=== PATIENT | female | born 1995 | race Hispanic/Latino ===

== ENCOUNTER 2020-03-01 12:28 | Emergency (ER) | payer BC ==
[2020-03-01 13:59] VITALS: BP 125/80
--- NOTE | 2020-03-01 15:53 | Event Note ---
ED Screening Note Date of service: 03/01/20 Time: 15:51 ED Screening Note: -year-old female presents with left-sided back/flank pain worsening x3 days. Patient also states she is noting some numbness to her buttocks region for the past month that is worsening and causing numbness to the left leg This initial assessment/diagnostic orders/clinical plan/treatment(s) is/are subject to change based on patients health status, clinical progression and re- assessment by fellow clinical providers in the ED. Further treatment and workup at subsequent clinical providers discretion. Patient/guardian urged not to elope from the ED as their condition may be serious if not clinically assessed and managed. Initial orders include: ua,upt decadron? Pain control neuro?
[2020-03-01] MEDS ORDERED: KETOROLAC 30 MG/1 ML INJ IM ONE (17:52)
--- NOTE | 2020-03-01 17:58 | Emergency Department Report ---
ED Back Pain/Injury HPI - General Chief Complaint: Back Pain/Injury Stated Complaint: BACK AND LEG PAIN Time Seen by Provider: 03/01/20 17:36 Source: patient Limitations: No Limitations - History of Present Illness Initial Comments: This is a healthy 24-year-old female with a history of depression who presents with buttock numbness lower back pain. The numbness began several months ago. Numbness is located in both buttocks. She has lower back pain bilateral. She started a new job 4 months ago working in [employer]. No trauma. No car accidents. No falls. She does perform lifting bending with her new job. She denies leg weakness. She denies bowel or bladder incontinence. She denies fever. She took Tylenol with minimal relief. MD Complaint: back pain -: Gradual, month(s) (1 month of pain, several months of buttock numbness) Place: home, work Severity: moderate Severity scale (0 -10): 7 Quality: dull Consistency: constant Improves With: movement Worsens With: none Context: other (new job ) - Related Data Previous Rx's Medication Instructions Recorded Last Taken Type Cyclobenzaprine [Flexeril] 10 mg PO TID PRN #20 tablet 03/01/20 Unknown Rx Ibuprofen [Motrin 400 MG tab] 400 mg PO QID 5 Days #20 tablet 03/01/20 Unknown Rx Allergies Allergy/AdvReac Type Severity Reaction Status Date / Time amoxicillin Allergy Unknown Verified 03/01/20 13:56 ED Review of Systems ROS: Stated complaint: BACK AND LEG PAIN Other details as noted in HPI Constitutional: denies: fever, malaise Gastrointestinal: denies: abdominal pain, nausea, vomiting Neurological: numbness, paresthesias. denies: headache, weakness ED Past Medical Hx - Past Medical History Previous Medical History?: Yes Hx Asthma: Yes Additional medical history: Depression - Surgical History Past Surgical History?: No - Social History Smoking Status: Never Smoker Substance Use Type: None - Medications Home Medications: Home Medications Medication Instructions Recorded Confirmed Last Taken Type Cyclobenzaprine [Flexeril] 10 mg PO TID PRN #20 tablet 03/01/20 Unknown Rx Ibuprofen [Motrin 400 MG tab] 400 mg PO QID 5 Days #20 tablet 03/01/20 Unknown Rx ED Physical Exam - General Limitations: No Limitations General appearance: alert, in no apparent distress - Head Head exam: Present: atraumatic, normocephalic - Eye Eye exam: Present: normal appearance - ENT ENT exam: Present: mucous membranes moist - Neck Neck exam: Present: normal inspection - Respiratory Respiratory exam: Absent: respiratory distress - Extremities Exam Extremities exam: Present: normal inspection - Back Exam Back exam: Present: normal inspection, full ROM, muscle spasm. Absent: tenderness, CVA tenderness (R), CVA tenderness (L), paraspinal tenderness, vertebral tenderness - Neurological Exam Neurological exam: Present: alert, oriented X3 - Psychiatric Psychiatric exam: Present: normal affect, normal mood - Skin Skin exam: Present: warm, dry, intact, normal color. Absent: rash ED Course Vital Signs 03/01/20 03/01/20 13:57 15:56 Temperature 98.0 F 98 F Pulse Rate 80 77 Respiratory 16 18 Rate Blood Pressure 125/80 125/80 O2 Sat by Pulse 99 100 Oximetry ED Medical Decision Making - Medical Decision Making Back strain lower back strain due to new job. No evidence of cauda equina or cord compression. No red flags such as trauma, bowel bladder incontinence, neurological findings, weight loss, drug use. Prescribed ibuprofen and Flexeril. Recommended physical therapy. Recommended evaluation and treatment by chiropractor. Also given referral to outpatient medicine physician. Critical care attestation.: If time is entered above; I have spent that time in minutes in the direct care of this critically ill patient, excluding procedure time. ED Disposition Clinical Impression: Low back strain, Repetitive strain injury of lower back Disposition: DC-01 TO HOME OR SELFCARE Is pt being admited?: No Does the pt Need Aspirin: No Condition: Stable Instructions: Low Back Strain (ED), Core Strengthening Exercises (GEN) Prescriptions: Cyclobenzaprine [Flexeril] 10 mg PO TID PRN #20 tablet PRN Reason: Muscle Spasm Ibuprofen [Motrin 400 MG tab] 400 mg PO QID 5 Days #20 tablet Referrals: ISRAEL PEREZ MD [Staff Physician] - 3-5 Days Forms: Work/School Release Form(ED)
== END 2020-03-01 18:11 | disposition home or self-care (01) ==
LOC: ED 12:28
DX: S39.012A Strain of muscle, fascia and tendon of lower back, initial encounter (principal); J45.909 Unspecified asthma, uncomplicated; F32.9 Major depressive disorder, single episode, unspecified; Z79.1 Long term (current) use of non-steroidal anti-inflammatories (NSAID); Z79.899 Other long term (current) drug therapy; Z88.1 Allergy status to other antibiotic agents; X58.XXXA Exposure to other specified factors, initial encounter; Y93.89 Activity, other specified; Y92.89 Other specified places as the place of occurrence of the external cause; Y99.8 Other external cause status
CPT/HCPCS: 96372; 99282; J1885

== ENCOUNTER 2021-05-21 05:49 | Emergency (ER) | payer SELFPAY ==
[2021-05-21 06:05] VITALS: BP 108/69
--- NOTE | 2021-05-21 06:30 | Emergency Department Report ---
ED General Adult HPI - General Chief complaint: Vaginal Bleeding Stated complaint: BLEEDING/5 WKS Time Seen by Provider: 05/21/21 06:27 Source: patient Mode of arrival: Ambulatory Limitations: No Limitations - History of Present Illness Initial comments: Patient is 25 years old female 2, 1 ectopic . Patient stated that she is 5 weeks . Patient presented to the ER complaining of vaginal bleeding for 2 days. Patient is also complaining of lower abdominal cramping mainly suprapubic area. Patient denied any vaginal discharge. No fever or chills. No recent injury. - Related Data Previous Rx's Medication Instructions Recorded Last Taken Type Cyclobenzaprine [Flexeril] 10 mg PO TID PRN #20 tablet 03/01/20 Unknown Rx Ibuprofen [Motrin 400 MG tab] 400 mg PO QID 5 Days #20 tablet 03/01/20 Unknown Rx Allergies Allergy/AdvReac Type Severity Reaction Status Date / Time amoxicillin Allergy Unknown Verified 03/01/20 13:56 ED Review of Systems ROS: Stated complaint: BLEEDING/5 WKS Other details as noted in HPI Comment: All other systems reviewed and negative Constitutional: denies: chills, fever Respiratory: denies: cough, shortness of breath, SOB with exertion Cardiovascular: denies: chest pain Gastrointestinal: abdominal pain. denies: nausea, vomiting, diarrhea, constipation, hematemesis, melena, hematochezia Genitourinary: abnormal menses. denies: urgency Musculoskeletal: denies: back pain Neurological: denies: headache, weakness, numbness, paresthesias, confusion ED Past Medical Hx - Past Medical History Previous Medical History?: Yes Hx Asthma: Yes Additional medical history: Depression. Ectopic - Surgical History Past Surgical History?: No - Social History Smoking Status: Former Smoker - Medications Home Medications: Home Medications Medication Instructions Recorded Confirmed Last Taken Type Cyclobenzaprine [Flexeril] 10 mg PO TID PRN #20 tablet 03/01/20 Unknown Rx Ibuprofen [Motrin 400 MG tab] 400 mg PO QID 5 Days #20 tablet 03/01/20 Unknown Rx ED Physical Exam - General Limitations: No Limitations General appearance: alert, in no apparent distress - Head Head exam: Present: atraumatic, normocephalic, normal inspection - Eye Eye exam: Present: normal appearance, PERRL - ENT ENT exam: Present: normal exam, normal orophraynx, mucous membranes moist - Neck Neck exam: Present: normal inspection, full ROM. Absent: tenderness, meningismus - Respiratory Respiratory exam: Present: normal lung sounds bilaterally - Cardiovascular Cardiovascular Exam: Present: regular rate, normal rhythm, normal heart sounds - GI/Abdominal GI/Abdominal exam: Present: soft, normal bowel sounds. Absent: distended, tenderness, guarding, rebound, rigid, organomegaly, mass, bruit, pulsatile mass, hernia - Extremities Exam Extremities exam: Present: normal inspection, full ROM, normal capillary refill. Absent: tenderness - Back Exam Back exam: Present: normal inspection, full ROM. Absent: CVA tenderness (R), CVA tenderness (L) - Neurological Exam Neurological exam: Present: alert, oriented X3, CN II-XII intact, normal gait, reflexes normal - Psychiatric Psychiatric exam: Present: normal mood - Skin Skin exam: Present: warm, intact, normal color ED Course Vital Signs 05/21/21 06:02 Temperature 97.6 F Pulse Rate 77 Respiratory 16 Rate Blood Pressure 108/69 [Right] O2 Sat by Pulse 99 Oximetry ED Medical Decision Making - Lab Data Result diagrams: 05/21/21 06:44 05/21/21 06:44 - Radiology Data Radiology results: report reviewed - Medical Decision Making Patient is 25 years old female 2, 1 ectopic . Patient stated that she is 5 weeks . Patient presented to the ER complaining of vaginal bleeding for 2 days. Patient is also complaining of lower abdominal cramping mainly suprapubic area. Patient denied any vaginal discharge. No fever or chills. No recent injury. Patient remained stable in the ER with stable vital sign. Labs showed a beta- hCG quant of more than 5000 however there is no intrauterine . There is a left ovarian complex cyst according to the report. There is a possibility of ectopic . Try to call Dr. Calderon patient OB doctor several times but there is no answer. Patient became upset and she wanted to leave the ER. I told her the risk of leaving with a ectopic without treatment. She stated that she will still want to leave. Patient is alert, oriented x3 no acute distress. Patient advised to return to the emergency room if she started to have any abdominal pain or bleeding. Critical care attestation.: If time is entered above; I have spent that time in minutes in the direct care of this critically ill patient, excluding procedure time. ED Disposition Clinical Impression: Ectopic Disposition: 01 HOME / SELF CARE / HOMELESS Is pt being admited?: No Condition: Stable Instructions: Ectopic Additional Instructions: Your ultrasound showed possible empty uterus with left ovarian cyst and elevated beta hCG this is may indicate that you have ectopic . Please return to the ER immediately if you start having any abdominal pain or vaginal bleeding. Please follow-up with your primary doctor as soon as possible. Referrals: PRIMARY MD JOYCE [Primary Care Provider] - 3-5 Days SHIRLEY CALDERON MD [Staff Physician] - 3-5 Days
[2021-05-21 06:49] LABS: WBC,Urine < 1.0 /HPF (0.0-6.0)
[2021-05-21 07:05] LABS: Basophils % (Auto) 0.6 % (0.0-1.8); Eosinophils # (Auto) 0.1 K/mm3 (0.0-0.4); Eosinophils % (Auto) 0.7 % (0.0-4.3); Hemoglobin 15.1 gm/dl (10.1-14.3); Lymphocytes # (Auto) 2.3 K/mm3 (1.2-5.4); Lymphocytes % (Auto) 32.1 % (13.4-35.0); Mean Corpuscular HGB Conc 35 % (30-34); Mean Corpuscular Volume 95 fl (79-97); Monocytes # (Auto) 0.4 K/mm3 (0.0-0.8); Monocytes % (Auto) 6.2 % (0.0-7.3); Platelet Count 264 K/mm3 (140-440); Red Blood Count 4.55 M/mm3 (3.65-5.03); Red Cell Distribution Width 12.4 % (13.2-15.2)
[2021-05-21 07:07] LABS: Bilirubin,Urine Negative (Negative); Blood,Urine 2+ (Negative); Color,Urine Straw (Yellow)
[2021-05-21 07:08] LABS: Protein,Urine <15 mg/dL mg/dL (Negative); Urobilinogen,Urine < 2.0 mg/dL (<2.0)
[2021-05-21 07:24] LABS: Blood Urea Nitrogen 9 mg/dL (7-17); Calcium 9.2 mg/dL (8.4-10.2); Hemolysis Index 4
[2021-05-21 07:25] LABS: BUN/Creatinine Ratio 23
--- NOTE | 2021-05-21 09:57 | Ultrasound Report ---
US OB <= 14 weeks fetus INDICATION / CLINICAL INFORMATION: Abdominal pain . COMPARISON: None available. FINDINGS: There is no sonographic evidence of intrauterine . No endometrial fluid collections are seen . Endometrial thickness is 9 mm. Right ovary is unremarkable. The left ovary contains a 2.3 cm complex cyst. No free fluid is seen. IMPRESSION: 1. No sonographic evidence of intrauterine . 2. 2.3 cm complex left ovarian cyst. Correlation with serial beta hCG levels and short-term sonograph ic follow-up is recommended. Signer Name: Steven Saxena MD Signed: 05/21/2021 9:53 AM Workstation Name: [id number]
--- NOTE | 2021-05-28 07:50 | Ultrasound Report ---
ULTRASOUND PELVIS INDICATION: ABDOMINAL PAIN. TECHNIQUE: Transvaginal. Duplex Color Doppler used: Yes. COMPARISON: None available FINDINGS: Uterus: Present. Size: 8.6 x 4 x 4.4 cm. Endometrial complex: Prominent measuring 0.9 cm. Mass lesions: None. Additional findings: None. Right Ovary -- 2.3 x 1.4 x 1.8 Blood flow: Normal. Cyst or mass: None. Left Ovary-- 4.7 x 2.4 x 2 Blood flow: Normal. Cyst or mass: 2.3 cm complex cyst. Urinary Bladder: Normal. Free Fluid: None. Additional Findings: None. IMPRESSION: 1. Prominent endometrial stripe. No intrauterine . 2. Mildly complex cyst left ovary. Recommend correlation with hCG levels. 3. No adnexal lesion. Signer Name: Jaspal Nolan MD Signed: 05/28/2021 7:45 AM Workstation Name: [id number]
== END 2021-05-21 13:07 | disposition home or self-care (01) ==
LOC: ED 05:49
DX: O00.90 Unspecified ectopic pregnancy without intrauterine pregnancy (principal); J45.909 Unspecified asthma, uncomplicated; Z88.1 Allergy status to other antibiotic agents; Z3A.01 Less than 8 weeks gestation of pregnancy
CPT/HCPCS: 36415; 76801; 76817; 80048; 81001; 84702; 85025; 86900; 86901; 99284

== ENCOUNTER 2022-04-05 20:36 | Outpatient (CLI) | payer OTHER ==
[2022-04-05] MEDS ORDERED: LACTATED RINGERS 1,000 ML IV ONE (22:01)
[2022-04-05 22:22] LABS: Bilirubin,Urine NEG (Negative); Blood,Urine NEG (Negative); Color,Urine Yellow (Yellow); Protein,Urine <15 mg/dL mg/dL (Negative); Urobilinogen,Urine < 2 mg/dL (<2.0)
[2022-04-05 22:23] LABS: Bacteria,Urine 1+ /HPF (Negative); Mucus,Urine FEW /HPF
[2022-04-05 22:24] LABS: Hematocrit 34.8 % (30.3-42.9); Hemoglobin 11.6 gm/dl (10.1-14.3); Mean Corpuscular HGB Conc 33 % (30-34); Mean Corpuscular Volume 84 fl (79-97); Platelet Count 302 K/mm3 (140-440); Red Blood Count 4.16 M/mm3 (3.65-5.03); Red Cell Distribution Width 14.2 % (13.2-15.2)
[2022-04-05 22:44] LABS: Alanine Aminotransferase 17 units/L (7-56)
[2022-04-05 23:27] VITALS: BP 136/83
[2022-04-06 01:29] LABS: Uric Acid 5.8 mg/dL (3.5-7.6)
== END 2022-04-05 23:30 | disposition home or self-care (01) ==
LOC: TRG 20:36 → APU 20:43 → TRG 23:30
PROVIDERS: ATTEND Obstetrics & Gynecology Gynecology
DX: O13.3 Gestational [pregnancy-induced] hypertension without significant proteinuria, third trimester (principal); Z3A.36 36 weeks gestation of pregnancy
CPT/HCPCS: 36415; 81001; 82565; 83615; 84450; 84460; 84550; 85027